=== PATIENT | male | born 1985 | race Caucasian/White ===

== ENCOUNTER 2017-05-17 03:59 | Emergency (ER) | payer OTHER ==
[2017-05-17] MEDS ORDERED: Sodium Chloride 0.9% 2.5 ML Syringe FLUSH PRN (04:02)
[2017-05-17] MEDS ORDERED: Sodium Chloride 0.9% 1,000 ML IV ONE (04:02)
[2017-05-17] MEDS ORDERED: HYDROmorphone 2 MG/ML Syringe IVPUSH ONE (04:02)
[2017-05-17] MEDS ORDERED: Sodium Chloride 0.9% 10 ML Syringe FLUSH PRN (04:02)
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
[2017-05-17 04:29] LABS: CHLORIDE,CL 106 mmol/L (98-110); SODIUM,NA 141 mmol/L (136-146)
[2017-05-17] MEDS ORDERED: Iopamidol 755 MG/ML 500 ML Multipack Bottle IVPUSH STA (04:35)
[2017-05-17 08:06] VITALS: BP 141/84
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
== END 2017-05-17 06:31 ==
LOC: MW.ED 03:59
DX: S36.00XA Unspecified injury of spleen, initial encounter (principal); S27.1XXA Traumatic hemothorax, initial encounter; S22.42XA Multiple fractures of ribs, left side, initial encounter for closed fracture; V83.5XXA Driver of special industrial vehicle injured in nontraffic accident, initial encounter
CPT/HCPCS: 36415; 71010; 71260; 72128; 74177; 80053; 80305; 81001; 82150; 83690; 85025; 85610; 93005; 96361; 96374; 99285; G0480; J1170; J7040; Q9967; G0390